=== PATIENT | male | born 1955 | race Two or more races ===

== ENCOUNTER 2022-02-08 16:11 | Inpatient (IN) | payer BC, OTHER ==
[~2022-02-08] VITALS: Ht 182.9 cm; Wt 108.6 kg
[2022-02-08 19:05] LABS: Urine Specific Gravity 1.023 (1.001-1.035)
[2022-02-08 19:06] LABS: Urine Blood Negative /uL (Negative)
[2022-02-08 19:29] LABS: Basophils # (auto) 0.1 10 ^3/uL (0-0.2); Basophils % (auto) 0.7 % (0.0-2.0); Eosinophils # (auto) 0.4 10 ^3/uL (0-0.8); Hemoglobin 16.2 g/dL (13.5-17.5); Lymphocytes # (auto) 3.2 10 ^3/uL (0.4-5.4); Lymphocytes % (auto) 29.8 % (10.0-50.0); Mean Corpuscular Hemoglobin 30.3 pg (28.0-32.0); Mean Corpuscular Hgb Conc. 33.7 g/dL (32.0-36.0); Mean Corpuscular Volume 89.8 fL (80.0-100.0); Monocytes # (auto) 0.7 10 ^3/uL (0-1.3); Monocytes % (auto) 6.9 % (0.0-12.0); Neutrophils # (auto) 6.3 10 ^3/uL (1.6-8.6); Neutrophils % (auto) 58.6 % (37.0-80.0); Red Blood Cells 5.35 10^6/uL (4.5-5.90); Red Cell Distribution Width 13.1 % (11.8-14.3); White Blood Cell 10.8 10^3/uL (4.4-10.8)
[2022-02-08 19:49] LABS: INR 0.91 (0.9-1.15); Partial Thromboplastin Time 27.3 sec (24.6-33.4)
[2022-02-08 19:57] LABS: Albumin 3.3 g/dL (3.4-5.0); BUN/Creatinine Ratio 13.4; Calcium 9.1 mg/dL (8.5-10.1); Potassium 3.8 mmol/L (3.5-5.1)
[2022-02-08 19:59] LABS: Bilirubin, Total 0.3 mg/dL (0.2-1.0); Total Protein 7.7 g/dL (6.4-8.2)
[2022-02-08] MEDS ORDERED: PIPERACILLIN-TAZOB 3.375GM 100 ML IV ONE (20:15)
[2022-02-08] MEDS ORDERED: SODIUM CHLORIDE 0.9% 1,000 ML IV ONE (20:15)
[2022-02-08] MEDS ORDERED: HYDROcodone-ACET 5/325MG TAB PO PRN (21:15)
[2022-02-08] MEDS ORDERED: DOCUSATE SOD 100 MG CAP PO PRN (21:15)
[2022-02-08] MEDS ORDERED: ONDANSETRON HCL 4 MG/2 ML VIAL IV PRN (21:15)
[2022-02-08] MEDS ORDERED: ACETAMINOPHEN 325 MG TAB PO PRN (21:15)
[2022-02-08] MEDS ORDERED: MORPHINE SULFATE INJ 2 MG/ml SYRG IV PRN ×2 (21:15→23:45)
[2022-02-08] MEDS ORDERED: hydrALAZINE HCL 20 MG/ML VL IV PRN (21:15)
[2022-02-08] MEDS: metroNIDAZOLE 500MG/100ML 100 ML IV SCH (22:00)
[2022-02-08] MEDS ORDERED: NITROGLYCERIN 0.4 MG SL TAB SL PRN (23:45)
[2022-02-09] MEDS: SODIUM CHLORIDE 0.9% 1,000 ML IV SCH ×2 (00:41→18:29)
[2022-02-09 05:00] VITALS: BP 136/77
[2022-02-09] MEDS: metroNIDAZOLE 500MG/100ML 100 ML IV SCH ×3 (05:45→22:15)
[2022-02-09] MEDS ORDERED: BUPIVACAINE W/ EPINEPH 0.25% INJ 50ML MDV ONE (07:21)
[2022-02-09 07:24] LABS: Basophils # (auto) 0.1 10 ^3/uL (0-0.2); Basophils % (auto) 0.7 % (0.0-2.0); Eosinophils # (auto) 0.3 10 ^3/uL (0-0.8); Eosinophils % (auto) 2.7 % (0.0-7.0); Hematocrit 43.6 % (41.0-53.0); Hemoglobin 14.7 g/dL (13.5-17.5); Lymphocytes # (auto) 2.3 10 ^3/uL (0.4-5.4); Lymphocytes % (auto) 22.8 % (10.0-50.0); Mean Corpuscular Hemoglobin 30.2 pg (28.0-32.0); Mean Corpuscular Hgb Conc. 33.8 g/dL (32.0-36.0); Mean Corpuscular Volume 89.2 fL (80.0-100.0); Monocytes # (auto) 0.7 10 ^3/uL (0-1.3); Neutrophils # (auto) 6.7 10 ^3/uL (1.6-8.6); Neutrophils % (auto) 66.8 % (37.0-80.0); Nucleated Red Blood Cells % 0.1 %; Red Blood Cells 4.89 10^6/uL (4.5-5.90); Red Cell Distribution Width 12.9 % (11.8-14.3)
[2022-02-09] MEDS ORDERED: ceFAZolin 1GM/50ML 100 ML IV ONE (07:39)
[2022-02-09] MEDS ORDERED: fentaNYL CITRATE 100 MCG/2 ML VL ONE (07:43)
[2022-02-09] MEDS ORDERED: MIDAZOLAM HCL 2MG/2ML 2ml VIAL (1mg/ml) ONE (07:43)
[2022-02-09 07:45] LABS: Albumin 2.9 g/dL (3.4-5.0); Potassium 4.2 mmol/L (3.5-5.1)
[2022-02-09 07:50] LABS: BUN/Creatinine Ratio 13.5; Bilirubin, Total 0.6 mg/dL (0.2-1.0); Calcium 8.4 mg/dL (8.5-10.1); Total Protein 6.5 g/dL (6.4-8.2)
[2022-02-09] MEDS ORDERED: LIDOCAINE 2% (LOCAL ANESTH.) PF 5ml SDV ONE (07:52)
[2022-02-09] MEDS ORDERED: ROCURONIUM 10MG/ML 10ML VIAL IV ONE (07:52)
[2022-02-09] MEDS ORDERED: ONDANSETRON HCL 4 MG/2 ML VIAL ONE (07:52)
[2022-02-09] MEDS ORDERED: PROPOFOL 10 MG/ML 20 ML IV ONE (07:53)
[2022-02-09] MEDS ORDERED: HYDROmorphone HCL 2 MG/ML VL/or syr IV PRN ×2 (08:45)
[2022-02-09] MEDS ORDERED: ONDANSETRON HCL 4 MG/2 ML VIAL IV PRN (08:45)
[2022-02-09] MEDS ORDERED: NEOSTIGMINE 1 MG/ML INJ (10mg/10ML VIAL) ONE (09:42)
[2022-02-09] MEDS ORDERED: GLYCOPYRROLATE 0.2 MG/ML 1ML VIAL ONE (09:42)
[2022-02-09] MEDS ORDERED: HYDROmorphone HCL 2 MG/ML VL/or syr IV ONE (10:07)
[2022-02-09 11:00] VITALS: BP 117/72
[2022-02-09 12:40] VITALS: BP 119/73
[2022-02-09] MEDS: POLYETHYLENE GLYCOL 17 GM PWDR PO SCH (14:31)
[2022-02-09 17:00] VITALS: BP 118/75
[2022-02-09 22:00] VITALS: BP 132/77
[2022-02-09] MEDS ORDERED: SENNA 8.6 MG TAB PO PRN (22:00)
[2022-02-10 05:00] VITALS: BP 135/90
[2022-02-10] MEDS: metroNIDAZOLE 500MG/100ML 100 ML IV SCH ×2 (05:04→14:12)
[2022-02-10] MEDS: SODIUM CHLORIDE 0.9% 1,000 ML IV SCH (06:15)
[2022-02-10 08:00] VITALS: BP 142/92
[2022-02-10 08:51] VITALS: BP_SYST 135; BP_SYST 142; BP_DIAS 62; BP_DIAS 92
[2022-02-10] MEDS: POLYETHYLENE GLYCOL 17 GM PWDR PO SCH (10:00)
[2022-02-10 13:00] VITALS: BP 157/89
== END 2022-02-10 17:31 | disposition home or self-care (01) | DRG 343 ==
LOC: ER 16:11 → OVERFLOW 23:45 → EAST 02-09 02:20
PROVIDERS: ADMIT Nurse Practitioner Family; ATTEND Student in an Organized Health Care Education/Training Program
PROC: 0DTJ4ZZ Resection of Appendix, Percutaneous Endoscopic Approach (ICD-10-PCS; principal; 2022-02-09 07:52)
DX: K35.80 Unspecified acute appendicitis (principal); Z20.822 Contact with and (suspected) exposure to COVID-19; I10 Essential (primary) hypertension; Z82.49 Family history of ischemic heart disease and other diseases of the circulatory system; Z83.3 Family history of diabetes mellitus
CPT/HCPCS: 36415; 74176; 80053; 81003; 83690; 85025; 85610; 85730; 86850; 86900; 86901; 87426; 87804; 93005; 96365; 96375; G0378; J0690; J2001; J2250; J2405; J2543; J2704; J3490